=== PATIENT | female | born 1970 | race Hispanic/Latino ===

== ENCOUNTER → 2017-11-12 | Day surgery (SDC) | payer OTHER | LOC: BICULT 07:16 | PROVIDERS: ATTEND Family Medicine | PROC: 0HBT3ZX Excision of Right Breast, Percutaneous Approach, Diagnostic (ICD-10-PCS; principal; 2017-11-12) | DX: N64.89 Other specified disorders of breast (principal) | CPT/HCPCS: 19083; 88173; 88305 ==